=== PATIENT | female | born 1965 | race Caucasian/White ===

== ENCOUNTER 2017-01-26 05:32 | Day surgery (SDC) | payer OTHER ==
[~2017-01-26] VITALS: Ht 160 cm; Wt 71.5 kg
[~2017-01-26 05:32] MED LIST: ACET1TAB40 PO; BACTDS PO; CEPH-443 PO
[2017-01-26 06:35] VITALS: Ht 160 cm; Wt 71.5 kg
[2017-01-26] MEDS ORDERED: OMEPRAZOLE (06:41)
[2017-01-26] MEDS ORDERED: ZANTAC (06:41)
[2017-01-26 07:11] VITALS: BP 115/69; PULSE 66; RESP 24
[2017-01-26] MEDS ORDERED: FENTAnyl 50 MCG/ML VIAL ONE (07:35)
[2017-01-26] MEDS ORDERED: MIDAZOLAM 1 MG/ML 2 ML INJ ONE (07:35)
[2017-01-26 07:53] VITALS: BP 100/60; PULSE 60; RESP 14
--- NOTE | 2017-01-26 10:53 | GILP ---
DATE OF PROCEDURE: 01/26/2017 NAME OF PROCEDURES: Esophagogastroduodenoscopy and biopsy. SURGEON: Brent Hyatt MD PREOPERATIVE DIAGNOSIS: Upper abdominal pain. POSTOPERATIVE DIAGNOSES: 1. Small hiatal hernia. 2. Gastroesophageal reflux disease. 3. Gastritis with erosions. 4. Gastric mucosal biopsies were taken for Helicobacter pylori test. INDICATION FOR THE PROCEDURE: Ms. Wyatt Verdin is a 51-year-old female patient who had upper abdo sheeba pain, not responding to therapy. The patient was scheduled for endoscopic examination for fur ther evaluation. The procedure and possible complications are well explained to the patient, she understood and conse nted to the procedure. DESCRIPTION OF PROCEDURE: Under the influence of fentanyl and Versed, the gastroscope was carefully introduced into the esophagus and under direct vision, it was advanced to the stomach and through t he pylorus into the duodenal bulb and descending duodenum. FINDINGS: ESOPHAGUS: The patient had a small hiatal hernia and gastroesophageal reflux disease. STOMACH: She had gastritis with erosions. Gastric mucosal biopsies were taken for H. pylori test. DUODENUM: Normal. She tolerated the procedure very well and there was no complication from the procedure. At the end of the procedures, she was awake with stable vital signs and she was discharged home to the care of her family. IMPRESSION: 1. Small hiatal hernia. 2. Gastroesophageal reflux disease. 3. Gastritis with erosions. 4. Gastric mucosal biopsies were taken for Helicobacter pylori test. PLAN: 1. Continue omeprazole and Zantac. 2. Bentyl 10 mg p.o. t.i.d. p.r.n. for pain. 3. Await H. pylori test report. Dictated By: BRENT BALBUENA/MONICA Conf#: [id number] DID#: [id number] CC: BRENT HYATT MD;*EndCC*
--- NOTE | 2017-01-26 20:39 | CONS ---
DATE OF ADMISSION: 01/26/2017 DATE OF CONSULTATION: TYPE OF CONSULTATION: Preoperative gastroenterology. I thank you very much for this kind referral. HISTORY OF PRESENT ILLNESS: Ms. Wyatt Verdin is a 51-year-old female patient who has been referre d to me for further evaluation of upper abdominal pain, not responding to therapy with omeprazole an d Zantac. There is no definite past history of peptic ulcer disease. She is not taking any nonster oidal anti-inflammatory agents. Her appetite has been good, and she is not losing any weight. Ther e is no history of gallstones. She does not have any fever, chills or jaundice. There is no histor y of liver disease. The patient had an abdominal ultrasound and, according to her, it was normal. The patient denies any change in the bowel habit or rectal bleeding. There is no past history of in flammatory bowel disease or colon neoplasm. The patient is turning 52 in May, and she never had screening colonoscopy. She is not hypertensive or diabetic. She does not have any heart disease or lung problem. There is no history of kidney disease. SOCIAL HISTORY: She is a nonsmoker. She does not abuse alcohol. FAMILY HISTORY: Negative for gastrointestinal tract neoplasm. ALLERGIES: THERE IS NO HISTORY OF SIGNIFICANT DRUG ALLERGY. MEDICATIONS: 1. Omeprazole. 2. Zantac. PHYSICAL EXAMINATION VITAL SIGNS: She is 5 feet 3 inches tall and she weighs 160 pounds. HEART: Examination of the heart reveals normal first and second heart sounds. LUNGS: Clear. ABDOMEN: Soft without any distention. Liver and spleen are not palpable. There are no masses. Th ere is no focal tenderness. Normal bowel sounds are heard. CENTRAL NERVOUS SYSTEM: Examination does not reveal any focal neurological deficit. IMPRESSION: 1. Upper abdominal pain not responding to therapy with omeprazole and Zantac. 2. The patient states she had abdominal ultrasound done and it was normal. 3. The patient is turning 52 in May, and she needs screening colonoscopy. PLAN: 1. Endoscopic examination to rule out peptic ulcer disease. 2. Screening colonoscopy at a later date. The procedures and possible complications are well explained to the patient. She understands and co nsents to the procedures. I thank you once again. With warmest personal regards, Dictated By: ALPESH BALBUENA/MONICA Conf#: [id number] [facility]#: [id number]
== END 2017-01-27 08:10 | disposition home or self-care (01) ==
LOC: GIL 05:32
PROVIDERS: ATTEND Internal Medicine Gastroenterology
DX: K44.9 Diaphragmatic hernia without obstruction or gangrene (principal); K21.9 Gastro-esophageal reflux disease without esophagitis; K29.60 Other gastritis without bleeding
CPT/HCPCS: 43239; 84703; 87081; J2250; J3010; Z7610

== ENCOUNTER 2017-07-20 06:18 | Day surgery (SDC) | payer OTHER ==
[~2017-07-20] VITALS: Ht 162.6 cm; Wt 69.8 kg
[~2017-07-20 06:18] MED LIST changes: -ACET1TAB40 PO; -BACTDS PO; -CEPH-443 PO; +OMEPRAZOLE; +ZANTAC
[2017-07-20 06:38] VITALS: Ht 162.6 cm; Wt 69.8 kg
[2017-07-20 07:20] VITALS: BP 122/75; PULSE 62; RESP 12
--- NOTE | 2017-07-20 08:40 | OPPN ---
Date/Time of Note Date/Time of Note DATE: 07/20/17 TIME: 08:39 Operative Report Preoperative Diagnosis Screening Postoperative Diagnosis Small right colon polyp was removed Internal hemorrhoids Operation/Procedure Performed Colonoscopy and biopsy Surgeon see signature line assistant professor of history None Anesthesia: moderate sedation Estimated blood loss: none Transfusion Required none Specimen Colon polyp Grafts/Implants none Complications none ALPESH HYATT MD Jul 20, 2017 08:40
[2017-07-20] MEDS ORDERED: MIDAZOLAM 1 MG/ML 2 ML INJ ONE ×2 (08:50)
[2017-07-20] MEDS ORDERED: FENTAnyl 50 MCG/ML VIAL ONE (08:50)
[2017-07-20 09:12] VITALS: BP 99/65; PULSE 54; RESP 14
--- NOTE | 2017-07-21 07:23 | GILP ---
DATE OF PROCEDURE: NAME OF PROCEDURES: Colonoscopy and biopsy. SURGEON: Alpesh Bautista MD. PREOPERATIVE DIAGNOSIS: Screening colonoscopy. POSTOPERATIVE DIAGNOSES: 1. Colonoscopy all the way to the cecum. 2. Small right colon polyp was removed using the biopsy forceps. 3. Internal hemorrhage. INDICATION FOR THE PROCEDURE: Ms. Wyatt Verdin is a 52-year-old female patient who was scheduled for screening colonoscopy. The procedure and possible complications were well explained to the patient. She understood and con sented to the procedure. DESCRIPTION OF PROCEDURE: Under the influence of fentanyl and Versed, the colonoscope was carefully introduced in the rectum and under direct vision, it was advanced all the way to the cecum. FINDINGS: The patient had a small right colon polyp and it was removed using the biopsy forceps. S he had internal hemorrhoids. She tolerated the procedure very well, and there was no complication from the procedure. At the end of the procedure, she was awake with stable vital signs, and she was discharged home to the care of her family. IMPRESSION: Please see postoperative diagnoses. PLAN: Next screening colonoscopy in 10 years. Dictated By: ALPESH BALBUENA/MONICA Conf#: [id number] DID#: [id number]
== END 2017-07-20 13:49 | disposition home or self-care (01) ==
LOC: GIL 06:18
PROVIDERS: ATTEND Internal Medicine Gastroenterology
DX: K63.5 Polyp of colon (principal); K64.8 Other hemorrhoids
CPT/HCPCS: 45380; 88305; J2250; J3010; Z7610